=== PATIENT | female | born 1980 | race Two or more races ===

== ENCOUNTER 2019-05-07 11:49 | Emergency (ER) | payer BC ==
[2019-05-07] MEDS ORDERED: Ketorolac INJ* 30 MG/ML 1 ML VIAL IV ONE (14:31)
[2019-05-07] MEDS ORDERED: NS 0.9% 1000 ML** 1,000 ML IV ONE (14:39)
[2019-05-07 14:44] LABS: ABS Lymphocytes 0.4 10^3/ul (1.0-4.8); ABS Monocytes 0.2 10^3/ul (0-0.8); ABS Neutrophils 2.8 10^3/ul (1.5-7.7); Eosinophil % 0.4 %; Hematocrit 41 % (35-47); Hemoglobin 13.8 g/dL (12.0-16.0); Lymphocyte % 10.5 %; Mean Corpuscular HGB Conc 34 g/dL (31-36); Mean Corpuscular Hemoglobin 31 pg (27-31); Mean Corpuscular Volume 90 fL (80-97); Mean Platelet Volume 8.1 fL (7.4-10.4); Nucleated Red Blood Cells % 0.1; Platelet Count 218 10^3/uL (150-450); Red Blood Count 4.52 10^6 /uL (3.70-4.87); Red Cell Distribution Width 13 % (10-15); White Blood Count 3.3 10^3/uL (3.5-10.8)
--- NOTE | 2019-05-07 14:54 | ED ---
GI/ HPI - HPI Summary HPI Summary: This pt is a 38 y/o female presenting to [facility] c/o bilateral flank pain and fever. Pt reports her fever and pain on her right flank began on 05/05/19. She describes her pain as achy and "weird" sensation that has been intermittent. Pt additionally notes she has had more frequent urination, with dark urine, and foul odor urine. This morning she took 400 mg ibuprofen at 08:30 with moderate relief. Denies nausea, vomiting, vaginal bleeding and vaginal discharge. No PMHx. Denies any surgeries. Denies FHx of kidney stones. - History of Current Complaint Chief Complaint: EDFlankPain Time Seen by Provider: 05/07/19 14:30 Stated Complaint: FEVER AND LOW BACK DISCOMFORT PER PT Hx Obtained From: Patient Hx Last Menstrual Period: 01/03/18 Onset/Duration: Started Days Ago, Still Present Timing: Lasting Days Current Severity: Mild Pain Intensity: 3 Location of Pain: Flank - bilateral Pain Characteristics: Aching, Other: - "weird sensation" Associated Signs and Symptoms: Positive: Flank Pain - bilateral, Other: - POSITIVE: urinary frequency, dark urine, foul odor urine. Negative: Nausea, Vomiting, Fever, Chills Additional Signs & Symptoms: Negative: Vaginal Bleeding Aggravating Factor(s): Nothing Alleviating Factor(s): Nothing - Allergy/Home Medications Allergies/Adverse Reactions: Allergies Allergy/AdvReac Type Severity Reaction Status Date / Time No Known Allergies Allergy Verified 05/07/19 12:54 PMH/Surg Hx/FS Hx/Imm Hx Endocrine/Hematology History: Denies: Hx Diabetes Cardiovascular History: Denies: Hx Hypertension - Surgical History Surgical History: None Infectious Disease History: No Infectious Disease History: Denies: Traveled Outside the [place] in Last 30 Days - Family History Family History: FHx dyslipidemia. No FHx of kidney stones - Social History Alcohol Use: Occasionally Substance Use Type: Reports: None Smoking Status (MU): Never Smoked Tobacco Review of Systems Positive: Fever Negative: Vomiting, Nausea Genitourinary: Other - POSITIVE: urine with foul odor, dark urine Positive: frequency, flank pain - bilateral. Negative: discharge, other - NEGATIVE: vaginal bleeding All Other Systems Reviewed And Are Negative: Yes Physical Exam - Summary Physical Exam Summary: Constitutional: Well-developed, Well-nourished, Alert. (-) Distressed Skin: Warm, Dry HENT: Normocephalic; Atraumatic Eyes: Conjunctiva normal Neck: Musculoskeletal ROM normal neck. (-) JVD, (-) Stridor, (-) Nuchal rigidity Cardio: Rhythm regular, rate normal, Heart sounds normal; Intact distal pulses; Radial pulses are 2+ and symmetric. (-) Murmur Pulmonary/Chest wall: Effort normal. (-) Respiratory distress, (-) Wheezes, (-) Rales Abd: Soft, (-) Distension, (-) Guarding, (-) Rebound, Left greater than right flank tenderness Musculoskeletal: (-) Edema Lymph: (-) Cervical adenopathy Neuro: Alert, Oriented x3 Psych: Mood and affect Normal Triage Information Reviewed: Yes Vital Signs On Initial Exam: Initial Vitals Temp Pulse Resp BP Pulse Ox 98.2 F 60 16 128/85 98 05/07/19 11:52 05/07/19 11:52 05/07/19 11:52 05/07/19 11:52 05/07/19 11:52 Vital Signs Reviewed: Yes Diagnostics - Vital Signs Vital Signs Temp Pulse Resp BP Pulse Ox 05/07/19 14:13 98 F 68 16 122/83 98 05/07/19 11:52 98.2 F 60 16 128/85 98 - Laboratory Lab Results: Lab Results 05/07/19 Range/Units 14:31 WBC 3.3 L (3.5-10.8) 10^3/uL RBC 4.52 (3.70-4.87) 10^6 /uL Hgb 13.8 (12.0-16.0) g/dL Hct 41 (35-47) % MCV 90 (80-97) fL MCH 31 (27-31) pg MCHC 34 (31-36) g/dL RDW 13 (10-15) % Plt Count 218 (150-450) 10^3/uL MPV 8.1 (7.4-10.4) fL Neut % (Auto) 83.3 % Lymph % (Auto) 10.5 % Mower % (Auto) 5.7 % Eos % (Auto) 0.4 % Baso % (Auto) 0.1 % Absolute Neuts (auto) 2.8 (1.5-7.7) 10^3/ul Absolute Lymphs (auto) 0.4 L (1.0-4.8) 10^3/ul Absolute Monos (auto) 0.2 (0-0.8) 10^3/ul Absolute Eos (auto) 0.0 (0-0.6) 10^3/ul Absolute Basos (auto) 0.0 (0-0.2) 10^3/ul Absolute Nucleated RBC 0.0 10^3/ul Nucleated RBC % 0.1 Result Diagrams: 05/07/19 14:31 05/07/19 14:31 Lab Statement: Any lab studies that have been ordered have been reviewed, and results considered in the medical decision making process. - CT Abdomen/Pelvis CT CT Interpretation Completed By: Radiologist Summary of CT Findings: IMPRESSION: Punctate nonobstructing left renal calyceal stone. Dr. Welch has reviewed this report. Re-Evaluation - Re-Evaluation First Eval Re-Evaluation Time: 16:06 Comment: Urine with 2+ leuk esterase. Given pt's flank pain and symptoms will treat for pyelonephritis. Patient was updated on her results. She will be discharged home. GIGU Course/Dx - Course Course Of Treatment: 38 y/o female who presents with bilateral flank pain as well as urinary symptoms. Lungs bilateral flank tenderness. CT noncontrast of the left nonobstructing stone. Discussed with patient she did have kidney stone and could have passed one on the right but more likely has pyelonephritis. No e/o hydronephrosis. Do not suspect infected stone. - Diagnoses Provider Diagnoses: Pyelonephritis, Kidney stone Discharge - Sign-Out/Discharge Documenting (check all that apply): Patient Departure - Discharge home Patient Received Moderate/Deep Sedation with Procedure: No - Discharge Plan Condition: Stable Disposition: HOME Prescriptions: Sulfamethox/Trimethoprim DS* [Bactrim DS 800/160 TAB*] 1 tab PO BID 7 Days #14 tab Patient Education Materials: Kidney Stones (ED), Kidney Infection (ED) Referrals: Charissa Rachel MD [Medical Doctor] - Additional Instructions: You were seen in the emergency department for pain. Your CT scan showed a very small kidney stone in her left kidney. Your labs showed urinary tract infection Please take bactrim twice a day for 7 days If any studies were not completed at the time of discharge you will be called with the relevant results. Please follow up with your primary care doctor in next 2-3 days and return to emergency department for fevers, continued pain, worsening or concerning symptoms. - Billing Disposition and Condition Condition: STABLE Disposition: Home - Attestation Statements Document Initiated by Tatyana: Yes Documenting Scribe: Nora Jose Provider For Whom Tatyana is Documenting (Include Credential): Agustín Welch MD Scribe Attestation: I, Nora Jose, scribed for Agustín Welch MD on 05/07/19 at 2014. Scribe Documentation Reviewed: Yes Provider Attestation: The documentation as recorded by the Nora de la rosa accurately reflects the service I personally performed and the decisions made by me, Agustín Welch MD Status of Scribe Document: Viewed
[2019-05-07 15:02] LABS: ALT 28 U/L (7-52); AST 31 U/L (13-39); Albumin 4.4 g/dL (3.2-5.2); Albumin/Globulin Ratio 1.2 (1-3); Alkaline Phosphatase 73 U/L (34-104); Anion Gap 8 mmol/L (2-11); BUN/Creatinine Ratio 10.8 (8-20); Blood Urea Nitrogen 7 mg/dL (6-24); CO2 Carbon Dioxide 25 mmol/L (22-32); Calcium 9.6 mg/dL (8.6-10.3); Chloride 102 mmol/L (101-111); EGFR African American 122.8 (>60); EGFR Non-African American 101.5 (>60); Globulin 3.7 g/dL (2-4); Glucose 102 mg/dL (70-100); Potassium 3.4 mmol/L (3.5-5.0); Sodium 135 mmol/L (135-145); Total Protein 8.1 g/dL (6.4-8.9)
[2019-05-07 15:08] LABS: HCG Pregnancy < 0.60 mIU/mL
[2019-05-07 15:53] LABS: Urine Appearance Cloudy; Urine Bacteria 3+ (Absent); Urine Bilirubin Negative (Negative); Urine Blood 3+ (Negative); Urine Color Yellow; Urine Glucose Negative (Negative); Urine Ketones Negative (Negative); Urine Nitrite Negative (Negative); Urine Protein Negative (Negative); Urine Red Blood Cell 2+(6-10/hpf) (Absent); Urine Specific Gravity 1.008 (1.010-1.030); Urine Squamous Epithelial Cell Present (Absent); Urine Urobilinogen Negative (Negative); Urine White Blood Cell 2+(11-20/hpf) (Absent)
[2019-05-07] MEDS ORDERED: ED cefTRIAXone 1 GM/50 ML 1 GM/50 ML PREMIX.SET IVPB ONE ×2 (16:10→16:20)
[2019-05-07 17:22] VITALS: BP 111/74
== END 2019-05-07 17:21 | disposition home or self-care (01) ==
LOC: ED 11:49
DX: N20.0 Calculus of kidney (principal); R50.9 Fever, unspecified
CPT/HCPCS: 36415; 74176; 80053; 81003; 81015; 84702; 85025; 87086; 96361; 96365; 96375; 99283; J0696; J1885